=== PATIENT | male | born 1990 | race African-American/Black ===

== ENCOUNTER 2017-12-31 04:39 | Emergency (ER) | payer SELFPAY | END 2017-12-31 05:08 | disposition home or self-care (01) | LOC: D.ER 04:39 | DX: Z03.89 Encounter for observation for other suspected diseases and conditions ruled out (principal); X95.9XXA Assault by unspecified firearm discharge, initial encounter; Y93.89 Activity, other specified; Y92.89 Other specified places as the place of occurrence of the external cause ==